=== PATIENT | female | born 1945 | race Caucasian/White ===

== ENCOUNTER → 2017-12-22 | Outpatient (CLI) | payer MEDICARE ==
[~2017-12-22] MED LIST: DICL1KIT5 TOPICAL; MELA5 PO; MELO7.5T27 PO; SERT-132 PO
[2017-12-22 08:49] LABS: AUTOMATED NEUTROPHIL # 3.4 TH/MM3 (1.8-7.7); BASOPHIL % 0.5 % (0.0-2.0); EOSINOPHIL # 0.6 TH/MM3 (0-0.4); EOSINOPHIL % 8.5 % (0.0-4.0); HEMATOCRIT 44.5 % (35.0-46.0); HEMOGLOBIN 14.9 GM/DL (11.6-15.3); MEAN CELL VOLUME 89.7 FL (80.0-100.0); MEAN CORPUSCULAR HGB CONC 33.4 % (32.0-36.0); MEAN PLATELET VOLUME 7.8 FL (7.0-11.0); MONO % 10.1 % (0.0-8.0); MONOCYTE # 0.7 TH/MM3 (0-0.9); NEUT % 50.9 % (16.0-70.0); PLATELET COUNT 279 TH/MM3 (150-450); RED BLOOD COUNT 4.96 MIL/MM3 (4.00-5.30); RED CELL DISTRIBUTION WIDTH 13.2 % (11.6-17.2); WHITE BLOOD COUNT 6.8 TH/MM3 (4.0-11.0)
[2017-12-22 08:58] LABS: INTERNATIONAL NORMALIZED RATIO 1.1 RATIO; PROTHROMBIN TIME - PATIENT 11.6 SEC (9.8-11.6)
[2017-12-22 09:12] LABS: BICARBONATE 27.5 MEQ/L (21.0-32.0); CALCIUM 9.3 MG/DL (8.5-10.1); CREATININE 0.81 MG/DL (0.50-1.00)
[2017-12-22 11:12] LABS: BILIRUBIN, URINE NEG (NEG); BLOOD, URINE NEG (NEG); GLUCOSE,URINE NEG (NEG); KETONE, URINE NEG (NEG); MUCUS URINE FEW /lpf (OCC); NITRITE,URINE NEG (NEG); PH, URINE 5.5 (5.0-8.5); SQUAMOUS EPITHELIAL CELL URINE 1 /hpf (0-5); URINE COLOR YELLOW (YELLW/STRAW); URINE LEUKOCYTE ESTERASE NEG (NEG)
--- NOTE | 2017-12-22 18:01 | EKG ---
Date Performed: 12/22/2017 Time Performed: 08:37:02 PTAGE: 72 years EKG: Sinus rhythm NORMAL ECG NO PREVIOUS TRACING DOCTOR: Donita Brown Interpretating Date/Time 12/22/2017 17:58:02
== END ==
LOC: CPRE 11:02
PROVIDERS: ATTEND Orthopaedic Surgery Orthopaedic Surgery of the Spine
DX: Z01.812 Encounter for preprocedural laboratory examination (principal); Z01.810 Encounter for preprocedural cardiovascular examination; M17.12 Unilateral primary osteoarthritis, left knee
CPT/HCPCS: 36415; 80048; 81001; 85025; 85610; 85730; 93005

== ENCOUNTER 2018-01-09 05:19 | Inpatient (IN) | payer MEDICARE ==
[~2018-01-09] VITALS: Ht 152.4 cm; Wt 90.6 kg
[2018-01-09] MEDS ORDERED: FAT EMULSION 20% INJ 0 ML ONE (05:45)
[2018-01-09] MEDS ORDERED: CHLORHEXIDINE GLUCONATE 2 % 1 PACK (2 CLOTHS) TOPICAL PRN (06:00)
[2018-01-09] MEDS ORDERED: POVIDONE IODINE 5% (ANTISEPSIS KIT) 4 APPLICATIONS EACH NARE PRN (06:00)
[2018-01-09] MEDS ORDERED: SODIUM CHLORID 0.9% 500 ML IV PRN (06:00)
[2018-01-09] MEDS ORDERED: LACTATED RINGER'S 1000 ML IV PRN (06:00)
[2018-01-09] MEDS ORDERED: TRANEXAMIC ACID IV SCH (06:00)
[2018-01-09] MEDS ORDERED: VANCOMYCIN 1000 MG/NS 250 ML (for <70 kg) IV SCH ×2 (06:00)
[2018-01-09] MEDS ORDERED: CHLORHEXIDINE GLUCONATE 4% SOLN 120 ML BTL TOPICAL SCH (06:00)
[2018-01-09] MEDS ORDERED: ceFAZolin 2 GM PREMIX 50 ML IV SCH (06:00)
[2018-01-09] MEDS ORDERED: EXPAREL PERI-ARTICULAR INJECTION (TOTAL VOL. 60 ML) P-ARTICULR SCH ×2 (06:00)
[2018-01-09] MEDS ORDERED: METOPROLOL TARTRATE 25 MG TAB PO PRN (06:00)
[2018-01-09] MEDS ORDERED: SODIUM CHLORIDE 0.9% IV SCH (06:00)
[2018-01-09] MEDS ORDERED: VANCOMYCIN 1 GM/200 ML INJ 200 ML IV ONE (06:31)
[2018-01-09] MEDS ORDERED: ceFAZolin INJ 1,000 MG VIAL ONE ×2 (06:39→06:55)
[2018-01-09] MEDS ORDERED: GENTAMICIN SULFATE 80 MG/2 ML VIAL ONE (06:39)
[2018-01-09] MEDS ORDERED: BUPIVACAINE LIPOSOME PF 1.3% 20 ML VIAL ONE (06:40)
[2018-01-09] MEDS ORDERED: BUPIVACAINE/EPINEPHRINE 0.5% PF 30 ML VIAL ONE (06:40)
[2018-01-09] MEDS ORDERED: MIDAZOLAM HCL 2 MG/2 ML VIAL ONE (06:40)
[2018-01-09 06:45] VITALS: PULSE 70
[2018-01-09] MEDS ORDERED: KETAMINE HCL 50 MG/5 ML SYRINGE ONE (06:47)
[2018-01-09] MEDS ORDERED: SODIUM CHLORIDE 0.9% INJ 50 ML ONE (08:15)
[2018-01-09] MEDS: LACTATED RINGER'S 1000 ML INJ 1,000 ML IV SCH (09:25)
[2018-01-09] MEDS ORDERED: MORPHINE SULFATE 8 MG/ML INJ IM PRN (09:30)
[2018-01-09] MEDS ORDERED: diphenhydrAMINE HCL 25 MG CAP PO PRN (09:30)
[2018-01-09] MEDS ORDERED: TEMAZEPAM 15 MG CAP PO PRN (09:30)
[2018-01-09] MEDS ORDERED: ALUMINUM/MAGNESIUM/SIMETH 30 ML CUP PO PRN (09:30)
[2018-01-09] MEDS ORDERED: NALOXONE HCL 0.4 MG/ML AMP IV PUSH PRN (09:30)
[2018-01-09] MEDS ORDERED: Post-op Orders (for Pharmacy) XX ONE (09:30)
[2018-01-09] MEDS ORDERED: ASPIRIN EC 81 MG TABEC PO ONE (09:30)
--- NOTE | 2018-01-09 09:32 | PD.OP ---
cc: Kartik Guerrero MD Operative Report Date of Surgery: Jan 09, 2018 Preoperative Diagnosis: Osteoarthritis left knee Postoperative Diagnosis: Same Procedure: Left total knee replacement arthroplasty Anesthesia: General with local for pain control Surgeon: Kartik Guerrero Straddle Bug(s): MARY Erazo Operation and Findings: EBL: 50 cc INDICATION: This patient presents with long-standing arthritis of the knee. Attachment record documents conservative measures. The patient now presents for surgical treatment. NOTE: Renae Erazo PA-C was present for the entire surgical procedure as my senior it assistant. In my medical opinion her skill and care was necessary for proper management of this patient. TOURNIQUET TIME: 58 minutes COMPANY: [employer] FEMUR: Size 4, kinematic retaining TIBIA: Size 4, fixed-bearing PATELLA: 32 mm POLYETHYLENE INSERT: 11 mm, kinematic retaining PROCEDURE: This patient was brought the operating room and anesthetized in the supine position. The patient was positioned supine on the table. The tourniquet was placed about the thigh, and the leg was scrubbed with alcohol followed by Hibiclens followed by ChloraPrep and draped sterilely. A timeout was done, and antibiotics were given. After exsanguination the tourniquet was inflated to 250 mmHg. An anterior incision was made and a median parapatellar arthrotomy was performed. The patella was released laterally and subluxed allowing freehand cut of the patella which was then sized. A metal cap was placed over the exposed patellar surface for protection. A photogrammetry airplane pilot hole was placed in the distal femur allowing a 4 valgus cut removing 10 mm from the distal femur with a 3 external rotation of the femoral component. Anterior posterior and chamfer cuts were made. The posterior stabilize osteotomy was made. The attention was directed to the tibia. Retractors were positioned. The external alignment guide was used allowing the lateral tibia to be used as referencing guide and cut utilizing an oscillating saw taking care to avoid any injury to the surrounding soft tissues. This was sized properly. Trial reduction showed that the insert fit nicely. The patient had range of motion extension 0 flexion 125 . A medial release was not necessary. The bony surfaces prepared. On the back table 2 packets of methylmethacrylate were mixed. The components were cemented. Excess cement was removed. The tourniquet let down and hemostasis was controlled. The final plastic insert was inserted. Range of motion was the same as previously noted. A drain was brought through a separate stab incision. The arthrotomy was repaired with interrupted #1 Vicryl suture, subcutaneous tissue 2-0 Vicryl suture and skin with metallic sherri A sterile dressing was applied. Sponge counts, needle counts and instrument counts were all correct. The patient tolerated procedure well and was taken to recovery in satisfactory condition. FINDINGS: There was severe osteoarthritis especially of the medial compartment with a varus deformity. The final solution was excellent. There was no complication that was appreciated Kartik Guerrero MD Jan 09, 2018 09:32
[2018-01-09] MEDS ORDERED: ECASA81 PO (09:39)
[2018-01-09] MEDS ORDERED: OXYC1TAB63 PO (09:39)
--- NOTE | 2018-01-09 09:41 | HHI.FF ---
Face to Face Verification Diagnosis: (1) Primary localized osteoarthritis of left knee Physical Therapy Gait training Knee: Total knee, Protocol: Left, Full weight bearing Canvas Knee Splint: Other (At night for 4 weeks) Left LE Weight Bearing: WB as tolerated Nursing RN: 3 days/week x 2 weeks Dressing Changes: Do not change dressing I have seen patient Mally Newton on 01/09/18. My clinical findings support the need for the requested home health care services because: Limited ability to care for self High risk of falls I certify that my clinical findings support that this patient is homebound because: Unsteady gait/balance Kartik Guerrero MD Jan 09, 2018 09:41
[2018-01-09] MEDS ORDERED: DO NOT ADM ANY ANTICOAGULANT DRUGS PRN (09:45)
[2018-01-09] MEDS ORDERED: *morphine SULFATE 4 MG/ML PERIprocedure ONLY ONE (09:52)
[2018-01-09] MEDS ORDERED: *morphine SULFATE 10 MG/ML PERIprocedure ONLY ONE (09:59)
--- NOTE | 2018-01-09 10:40 | RADRPT ---
EXAM DATE: 01/09/2018 10:37 AM EDT AGE/SEX: 72 years / Female INDICATIONS: Post op left knee CLINICAL DATA: This is the patient's initial encounter. Patient reports that signs and symptoms have been present for 1 day and indicates a pain score of 10/10. MEDICAL/SURGICAL HISTORY: Non-responsive. Non-responsive. COMPARISON: No prior exams available for comparison. FINDINGS: Post surgical changes are noted following total knee replacement. The prosthetic components are well seated and in satisfactory alignment. There are no acute bony abnormalities. CONCLUSION: Satisfactory postoperative appearance of the left knee following knee replacement. Electronically signed by: Sarath Schofield MD 01/09/2018 10:39 AM EDT
[2018-01-09 11:00] VITALS: BP 120/66; PULSE 102; RESP 16; TEMP 97.6; O2SAT 98
[2018-01-09] MEDS ORDERED: DEXAMETHASONE SOD PHOS 4 MG/ML VIAL IV ONE (12:00)
[2018-01-09] MEDS ORDERED: SODIUM CHLOR 0.9% 250 ML INJ 250 ML IV ONE (12:00)
[2018-01-09] MEDS ORDERED: LACTATED RINGER'S 1000 ML INJ 3,000 ML IV ONE (12:00)
[2018-01-09] MEDS ORDERED: PROPOFOL 200 MG/20 ML AMP IV ONE (12:00)
[2018-01-09] MEDS ORDERED: ONDANSETRON HCL 4 MG/2 ML VIAL IV ONE (12:00)
[2018-01-09] MEDS ORDERED: LIDOCAINE HCL 1% PF 5 ML SYRINGE OTHER ONE (12:00)
[2018-01-09] MEDS ORDERED: ePHEDrine/NS 25 MG/5 ML SYRINGE IV ONE (12:00)
[2018-01-09] MEDS ORDERED: KETOROLAC TROMETHAMINE 30 MG/ML (IVP) VIAL IV PUSH ONE (12:00)
[2018-01-09] MEDS ORDERED: ROCURONIUM INJ 50 MG/5 ML SYRINGE IV PUSH ONE (12:00)
[2018-01-09] MEDS: oxyCODONE/ACETAMINOPHEN 5 MG/325 MG TAB PO PRN ×2 (13:00→18:11)
[2018-01-09] MEDS: ONDANSETRON ODT 4 MG TAB PO PRN ×2 (13:00→18:17)
[2018-01-09 13:15] VITALS: O2SAT 97
[2018-01-09 16:37] VITALS: BP 113/54; PULSE 90; RESP 18; TEMP 97.5; O2SAT 97
[2018-01-09 20:00] VITALS: BP 97/51; PULSE 83; RESP 18; TEMP 97.7; O2SAT 95
[2018-01-09 20:01] VITALS: O2SAT 96
[2018-01-09] MEDS: MELOXICAM 7.5 MG TAB PO SCH (21:00)
[2018-01-09] MEDS: MELATONIN 5 MG TAB PO SCH (21:41)
[2018-01-09] MEDS: ASPIRIN EC 81 MG TABEC PO SCH (21:42)
[2018-01-10] VITALS (7 sets, daily range): BP systolic 95–109; BP diastolic 50–59; PULSE 70–85; RESP 16–18; TEMP 98–98.8; O2SAT 94–97
[2018-01-10] MEDS: oxyCODONE/ACETAMINOPHEN 5 MG/325 MG TAB PO PRN ×5 (02:01→21:29)
[2018-01-10 05:59] LABS: HEMATOCRIT 35.5 % (35.0-46.0); HEMOGLOBIN 11.8 GM/DL (11.6-15.3)
[2018-01-10] MEDS: SERTRALINE HCL 50 MG TAB PO SCH (08:15)
[2018-01-10] MEDS: ASPIRIN EC 81 MG TABEC PO SCH ×2 (08:17→20:58)
[2018-01-10] MEDS: LACTATED RINGER'S 1000 ML INJ 1,000 ML IV SCH ×3 (08:35→22:55)
[2018-01-10] MEDS ORDERED: WALKER WHEELS/F1 MIS (13:00)
--- NOTE | 2018-01-10 13:00 | PD.ORT.PN ---
Subjective Subjective Remarks Moderate left knee pain. Occasional sharp pains and spasms. No new lower leg pain. No CP or SOB. Questions about discharge today versus tomorrow. Objective Vitals Vital Signs Date Time Temp Pulse Resp B/P (MAP) Pulse Ox O2 Delivery O2 Flow Rate FiO2 01/10/18 12:10 98.3 81 18 103/54 (70) 96 01/10/18 08:00 98.0 85 17 109/59 (76) 97 01/10/18 04:00 98.0 70 16 99/50 (66) 95 01/10/18 00:00 98.2 72 18 95/55 (68) 95 01/09/18 20:01 96 Nasal Cannula 1.00 01/09/18 20:00 97.7 83 18 97/51 (66) 95 01/09/18 19:20 18 01/09/18 16:37 97.5 90 18 113/54 (73) 97 01/09/18 13:15 97 Nasal Cannula 2.00 I/O 01/09/18 01/09/18 01/09/18 01/10/18 01/10/18 01/10/18 07:00 15:00 23:00 07:00 15:00 23:00 Intake Total 2000 ml 500 ml 240 ml 100 ml Output Total 50 ml 1000 ml Balance 1950 ml -500 ml 240 ml 100 ml Intake Oral 500 ml 240 ml IV Total 2000 ml 100 ml Output Urine Total 1000 ml Estimated Blood Loss 50 ml # Voids 1 # Bowel Movements 0 0 Result Diagram: 01/10/18 0518 Objective Remarks Sitting up in bed eating lunch NAD VSS Left LE Knee dressing c/d/i, minimal SS drainage, mild swelling and warmth, no erythema +motor at, +sens, +nvi neg homans Assessment & Plan Ortho Post Op Day #: 1 Problem List: Assessment and Plan pod#1 s/p L TKA Pain moderately controlled. Appears ortho stable. PT - WBAT LLE. TKA procotol CKS when in bed ALEXYS hose both legs. IS encouraged. Ice left knee bid. PO pain meds as needed. ASA 81mg bid Hold dressing changes unless saturated. D/C planning, likely HHC tomorrow. Is very concerned about going home today. Jeannie Lopez Jan 10, 2018 13:00
[2018-01-10] MEDS ORDERED: COMMODE 3-IN-11 MIS (13:01)
[2018-01-10] MEDS: MELATONIN 5 MG TAB PO SCH (20:58)
[2018-01-10] MEDS: MELOXICAM 7.5 MG TAB PO SCH (20:58)
[2018-01-11 00:35] VITALS: BP 101/54; PULSE 84; RESP 16; TEMP 98.3; O2SAT 93
[2018-01-11] MEDS: oxyCODONE/ACETAMINOPHEN 5 MG/325 MG TAB PO PRN ×3 (01:32→10:07)
--- NOTE | 2018-01-11 06:21 | PD.ORT.PN ---
Subjective Subjective Remarks Doing well. Pain well controlled. Ambulating Objective Vitals Vital Signs Date Time Temp Pulse Resp B/P (MAP) Pulse Ox O2 Delivery O2 Flow Rate FiO2 01/11/18 00:35 98.3 84 16 101/54 (70) 93 01/10/18 20:45 98.8 79 16 107/59 (75) 94 01/10/18 16:19 98.6 80 17 109/55 (73) 97 01/10/18 12:10 98.3 81 18 103/54 (70) 96 01/10/18 10:30 95 21 01/10/18 08:00 98.0 85 17 109/59 (76) 97 I/O 01/10/18 01/10/18 01/10/18 01/11/18 01/11/18 01/11/18 07:00 15:00 23:00 07:00 15:00 23:00 Intake Total 240 ml 100 ml 960 ml Balance 240 ml 100 ml 960 ml Intake Oral 240 ml 960 ml IV Total 100 ml # Voids 1 3 # Bowel Movements 0 Result Diagram: 01/10/18 0518 Objective Remarks Sitting up in bed NAD VSS Left LE Knee dressing c/d/i, minimal SS drainage, mild swelling and warmth, no erythema +motor at, +sens, +nvi neg homans Assessment & Plan Assessment and Plan pod#2 s/p L TKA Pain moderately controlled. Appears ortho stable. PT - WBAT LLE. TKA procotol CKS when in bed ALEXYS hose both legs. IS encouraged. Ice left knee bid. PO pain meds as needed. ASA 81mg bid Hold dressing changes unless saturated. D/C planning, likely HHC today. Kratik Guerrero MD Jan 11, 2018 06:21
[2018-01-11 08:00] VITALS: BP 116/59; PULSE 88; RESP 16; TEMP 97.9; O2SAT 92
[2018-01-11] MEDS: LACTATED RINGER'S 1000 ML INJ 1,000 ML IV SCH (09:56)
[2018-01-11] MEDS: SERTRALINE HCL 50 MG TAB PO SCH (10:05)
[2018-01-11] MEDS: ASPIRIN EC 81 MG TABEC PO SCH (10:06)
--- NOTE | 2018-01-11 21:29 | HHI.DCPOC ---
Discharge Care Plan Diagnosis: (1) Primary localized osteoarthritis of left knee Your Health Problems Are: Difficulty with ADL Incision/Drains Swelling Goals to Promote Your Health * To prevent worsening of your condition and complications * To maintain your health at the optimal level Directions to Meet Your Goals Take your medications as prescribed Follow your dietary instruction Follow activity as directed Keep your appointments as scheduled Take your immunizations and boosters as scheduled If your symptoms worsen call your PCP, if no PCP go to Urgent Care Center or Emergency Room Smoking is Dangerous to Your Health. Avoid second hand smoke Call the 24-hour hour crisis hotline for domestic abuse at Jeannie Lopez Jan 11, 2018 21:29
--- NOTE | 2018-01-11 21:39 | HHI.DS ---
Discharge Summary Admission Date Jan 09, 2018 at 05:19 Discharge Date: Jan 11, 2018 Admitting Diagnosis see below Diagnosis: (1) Primary localized osteoarthritis of left knee Diagnosis: Principal ICD Codes: M17.12 - Unilateral primary osteoarthritis, left knee Procedures Left total knee arthroplasty Brief History This is a 72 year old female patient with a multi year history of mild left knee pain that increased over the last 6 months. She began taking Aleve with little relief so she reduced her activity. She presented for medical treatment. Xrays were performed showing advanced arthritis of her left knee. She was given Meloxicam and prescribed supervised physical therapy. She continued on the medication for almost 4 months but continued to decline. Surgical treatment was eventually recommended in the form of left total knee arthroplasty. She agreed and now presents for the above. CBC/BMP: 01/10/18 0518 Significant Findings Laboratory Tests Test 01/10/18 05:18 PE at Discharge Sitting up in bed NAD VSS Left LE Knee dressing c/d/i, minimal SS drainage, mild swelling and warmth, no erythema +motor at, +sens, +nvi neg [facility] Course Surgical treatment was performed on the day of admission without complication. She recovered well in PACU and was transferred to the orthopaedic floor. Pain was controlled with IV and oral medications. She was compliant with physical therapy and all restrictions and precautions including use of her knee splint at night. After 2 days she was found to be stable and discharged home with home health care. She was educated to continue to ice the operative limb twice daily, to pursue a high fiber diet for 5-7 days, and to continue therapy as directed. She was given prescriptions of ASA 81mg twice daily and Percocet 5/ 325mg as needed for pain. Pt Condition on Discharge: Stable Discharge Disposition: Disch w/ Home Health Serv Discharge Instructions Diet Instructions: As Tolerated, No Restrictions, High Fiber Diet Activities You Can Perform: Weight Bearing as [place] Activities to Avoid: Strenuous Activity Additional Activity Instruc.: TKA protocol New Medications: Commode 3-in-1 (Commode 3-in-1) 1 Mis Mis EA .XX DIRECTED, #1 0 Refills Walker with Front Wheels (Walker with Front Wheels) 1 Mis Mis EA .XX DIRECTED, #[address] (Aspirin DR) 81 Mg Tabdr 81 MG PO BID for Prevent Blood Clot, #60 TAB Oxycodone HCl/Acetaminophen (Oxycodone-Acetaminophen 5-325) 5 Mg-325 Mg Tablet 1 TAB PO Q4H PRN for Pain, #42 TAB Continued Medications: Diclofenac Sodium Gel Topical (Diclo Gel Topical) 1% Gel 1 APPLIC TOPICAL QID for Joint Pain, #1 TUBE 0 Refills Melatonin (Melatonin) 5 Mg Tab 5 MG PO HS for Provide Good Sleep, TAB 0 Refills Meloxicam (Meloxicam) 7.5 Mg Tab 7.5 MG PO HS for Arthritis Pain, TAB 0 Refills Sertraline (Sertraline) 50 Mg Tab 50 MG PO DAILY, #30 TAB 0 Refills Jeannie Lopez Jan 11, 2018 21:39
== END 2018-01-11 10:51 | disposition home health service (06) | DRG 470 ==
LOC: HSDI 05:19 → EDUNIT# 10:30 → N06A 10:31
PROVIDERS: ADMIT Orthopaedic Surgery Orthopaedic Surgery of the Spine; ATTEND Orthopaedic Surgery Orthopaedic Surgery of the Spine
PROC: 0SRD0J9 Replacement of Left Knee Joint with Synthetic Substitute, Cemented, Open Approach (ICD-10-PCS; principal; 2018-01-09 07:14)
DX: M17.12 Unilateral primary osteoarthritis, left knee (principal); M25.552 Pain in left hip; M21.162 Varus deformity, not elsewhere classified, left knee; M25.561 Pain in right knee; M25.572 Pain in left ankle and joints of left foot
CPT/HCPCS: 73560; 85014; 85018; 86850; 86900; 86901; 86920; 94150; C1776; C9290; J0690; J1100; J1580; J1885; J2250; J2270; J2405; J3010; J3370; J7050; J7120; L1830